=== PATIENT | female | born 1965 | race American Indian/Alaskan Native ===

== ENCOUNTER 2019-08-20 08:22 | Emergency (ER) | payer MEDICAID ==
[2019-08-20] MEDS ORDERED: Clindamycin HCl 150 MG Cap PO ONE (08:23)
[2019-08-20] MEDS ORDERED: Clindamycin HCl 150 MG Cap ONE (08:47)
--- NOTE | 2019-08-20 08:50 | EDM.PDOC ---
ED HPI GENERAL MEDICAL PROBLEM - General Chief Complaint: ENT Problem Stated Complaint: FACE SWELLING Time Seen by Provider: 08/20/19 08:35 Source of Information: Reports: Patient History Limitations: Reports: No Limitations - History of Present Illness INITIAL COMMENTS - FREE TEXT/NARRATIVE: This 53 yo female patient reports to the ED with facial swelling that has been getting worse over the past couple of days. The patient was seen in the clinic on Saturday and started on Keflex and Mupirocin ointment, but has noticed increased swelling of her upper lip and right side of her face. The patient reports she has been taking the medications as prescribed. The patient reports ibuprofen has been helping with her pain. Duration: Day(s):, Constant, Getting Worse Location: Reports: Face Quality: Reports: Other Severity: Moderate Improves with: Reports: Medication (ibuprofen) Worsens with: Reports: None Context: Reports: Other Associated Symptoms: Reports: No Other Symptoms Treatments [employer]: Reports: NSAIDS Nose Pain Score (Numeric/FACES): 4 - Related Data Allergies Allergy/AdvReac Type Severity Reaction Status Date / Time morphine Allergy Other Verified 09/05/18 06:05 Sulfa (Sulfonamide Allergy Hives Verified 09/05/18 06:05 Antibiotics) Home Meds: Home Meds Cyanocobalamin (Vitamin B-12) [Vitamin B-12] 1,000 mcg IM .MONTHLY 08/27/18 [ History] Levothyroxine [Synthroid] 50 mcg PO DAILY 08/27/18 [History] Cephalexin [Keflex] 500 mg PO BID 08/20/19 [History] Mupirocin Oint [Bactroban Oint] 1 dose TOP TID 08/20/19 [History] Past Medical History HEENT History: Reports: None Cardiovascular History: Reports: High Cholesterol Respiratory History: Reports: Sleep Apnea Gastrointestinal History: Reports: GERD Genitourinary History: Reports: None 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: Musculoskeletal History: Reports: Arthritis, RA Neurological History: Reports: None Psychiatric History: Reports: Anxiety, Depression Endocrine/Metabolic History: Reports: Hypothyroidism, Obesity/BMI 30+ Hematologic History: Reports: B12 Deficiency Immunologic History: Reports: None Oncologic (Cancer) History: Reports: None Dermatologic History: Reports: None - Infectious Disease History Infectious Disease History: Reports: None - Past Surgical History Head Surgeries/Procedures: Reports: None HEENT Surgical History: Reports: Other (See Below) Other HEENT Surgeries/Procedures: growth on voice box bx, growth removed Cardiovascular Surgical History: Reports: None GI Surgical History: Reports: Cholecystectomy Female Surgical History: Reports: Tubal Ligation Musculoskeletal Surgical History: Reports: None Social & Family History - Family History Endocrine/Metabolic: Reports: Diabetes, type II, Hypothyroidism - Tobacco Use Smoking Status *Q: Current Some Day Smoker Years of Tobacco use: 20 Packs/Tins Daily: 0.1 Second Hand Smoke Exposure: Yes - Caffeine Use Caffeine Use: Reports: Coffee, Soda, Tea Caffeine Use Comment: 2 lg bottles weekly - Recreational Drug Use Recreational Drug Use: No ED ROS ENT - Review of Systems Review Of Systems: Comprehensive ROS is negative, except as noted in HPI. ED EXAM, ENT - Physical Exam Exam: See Below Exam Limited By: No Limitations General Appearance: Alert, WD/WN, Mild Distress Eye Exam: Bilateral Eye: EOMI, Normal Inspection, PERRL Ears: Normal External Exam, Normal Canal, Hearing Grossly Normal, Normal TMs Nose: Nasal Tenderness, Other (The patient has an erythematous area in her right nare that appears to by dry at this time. ) Mouth/Throat: Dental Tenderness (upper teeth), Lip Swelling (Upper) Head: Sinus Tenderness (right maxillary) Neck: Normal Inspection, Supple, Non-Tender, Full Range of Motion Respiratory/Chest: No Respiratory Distress, Lungs Clear, Normal Breath Sounds, No Accessory Muscle Use, Chest Non-Tender Cardiovascular: Normal Peripheral Pulses, Regular Rate, Rhythm, No Edema, No Gallop, No JVD, No Murmur, No Rub GI/Abdominal: Normal Bowel Sounds, Soft, Non-Tender, No Organomegaly, No Distention, No Abnormal Bruit, No Mass (Female) Exam: Deferred Rectal (Female) Exam: Deferred Back: Normal Inspection, Full Range of Motion Extremities: Normal Inspection, Normal Range of Motion, Non-Tender, No Pedal Edema, Normal Capillary Refill Neurological: Alert, Oriented, CN II-XII Intact, Normal Cognition, Normal Gait, Normal Reflexes, No Motor/Sensory Deficits Psychiatric: Normal Affect, Normal Mood Skin: Warm, Dry, Intact, Normal Color, No Rash Lymphatic: No Adenopathy Course - Vital Signs Last Recorded V/S: Last Vital Signs Temp 36.2 C 08/20/19 08:24 Pulse 94 08/20/19 08:24 Resp 18 08/20/19 08:24 BP 134/77 08/20/19 08:24 Pulse Ox 96 08/20/19 08:24 Departure - Departure Time of Disposition: 08:47 Disposition: Home, Self-Care 01 Condition: Fair Clinical Impression: Cellulitis, face - Discharge Information *PRESCRIPTION DRUG MONITORING PROGRAM REVIEWED*: Not Applicable *COPY OF PRESCRIPTION DRUG MONITORING REPORT IN PATIENT DIOR: Not Applicable Instructions: Cellulitis, Adult, [id number] Forms: ED Department Discharge Care Plan Goals: The patient was advised of the examination results during the visit. The patient was discharged with a script for Clindamycin (300 mg) #40 to take 1 by mouth 4 times per day for 10 days. The patient was also sent home with Clindamycin (150 mg) #8 to take 2 by mouth 4 times today due to the fact that the pharmacies are closed for the holiday. If the patient has any additional symptoms or concerns, the patient should follow-up with his primary care facility or return to the emergency department.
== END 2019-08-20 08:52 | disposition home or self-care (01) ==
LOC: DL.ED 08:22
DX: L03.211 Cellulitis of face (principal); E03.9 Hypothyroidism, unspecified; E66.9 Obesity, unspecified; F17.210 Nicotine dependence, cigarettes, uncomplicated; Z88.5 Allergy status to narcotic agent; Z88.2 Allergy status to sulfonamides; Z79.899 Other long term (current) drug therapy
CPT/HCPCS: 99283; A9270

== ENCOUNTER 2020-12-30 15:50 | Emergency (ER) | payer BC, MEDICAID ==
--- NOTE | 2020-12-30 16:18 | EDM.PDOC ---
<Antolin Momin Ho - Last Filed: 12/30/20 16:47> ED HPI GENERAL MEDICAL PROBLEM - General Chief Complaint: Chest Pain Stated Complaint: AMBULANCE Time Seen by Provider: 12/30/20 16:13 Source of Information: Reports: Patient History Limitations: Reports: No Limitations - History of Present Illness INITIAL COMMENTS - FREE TEXT/NARRATIVE: 55 y/o F c/o chest pain radiating reagan the left arm and bilateral hand cramping x 45 min. Pt states she was helping a coworker move a box and afterwards the symptoms came on. Pn was 8/10 initially and sharp and now is a 1/10 at rest. States the day was very stessful with a terrible meeting with the [facility] [place] today around noon. Hx of anxiety. Brother had an CO 3 mo ago at 56 years of age. Has had a tubal ligation. Denies fever, cough, chills, jaw pain, vision prob, abd pn, pelvic pain, diff voiding, extremity pain. Onset: Today, Sudden Duration: Minutes: Location: Reports: Chest Quality: Reports: Sharp Severity: Severe Worsens with: Reports: Rest Left Chest Pain Score (Numeric/FACES): 2 - Related Data Allergies Allergy/AdvReac Type Severity Reaction Status Date / Time morphine Allergy Other Verified 12/30/20 16:02 Sulfa (Sulfonamide Allergy Hives Verified 12/30/20 16:02 Antibiotics) Home Meds: Home Meds Cyanocobalamin (Vitamin B-12) [Vitamin B-12] 1,000 mcg IM .MONTHLY 08/27/18 [History] Levothyroxine [Synthroid] 50 mcg PO DAILY 08/27/18 [History] Folic Acid 1 mg PO DAILY 12/30/20 [History] Past Medical History HEENT History: Reports: None Cardiovascular History: Reports: High Cholesterol Respiratory History: Reports: Sleep Apnea Gastrointestinal History: Reports: GERD Genitourinary History: Reports: None 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: Musculoskeletal History: Reports: Arthritis, RA Neurological History: Reports: None Psychiatric History: Reports: Anxiety, Depression Endocrine/Metabolic History: Reports: Hypothyroidism, Obesity/BMI 30+ Hematologic History: Reports: B12 Deficiency Immunologic History: Reports: None Oncologic (Cancer) History: Reports: None Dermatologic History: Reports: None - Infectious Disease History Infectious Disease History: Reports: None - Past Surgical History Head Surgeries/Procedures: Reports: None HEENT Surgical History: Reports: Other (See Below) Other HEENT Surgeries/Procedures: growth on voice box bx, growth removed Cardiovascular Surgical History: Reports: None GI Surgical History: Reports: Cholecystectomy Female Surgical History: Reports: Tubal Ligation Musculoskeletal Surgical History: Reports: None Social & Family History - Family History Endocrine/Metabolic: Reports: Diabetes, type II, Hypothyroidism - Caffeine Use Caffeine Use: Reports: Coffee, Soda, Tea Caffeine Use Comment: 2 lg bottles weekly ED ROS GENERAL - Review of Systems Review Of Systems: Comprehensive ROS is negative, except as noted in HPI. ED EXAM, GENERAL - Physical Exam Exam: See Below Exam Limited By: No Limitations General Appearance: Alert, WD/WN, No Apparent Distress Throat/Mouth: Normal Inspection, Normal Lips, Normal Teeth, Normal Gums, Normal Oropharynx, Normal Voice, No Airway Compromise Head: Atraumatic, Normocephalic Neck: Normal Inspection, Supple, Non-Tender, Full Range of Motion Respiratory/Chest: No Respiratory Distress, Lungs Clear, Normal Breath Sounds, No Accessory Muscle Use, Chest Non-Tender Cardiovascular: Normal Peripheral Pulses, Regular Rate, Rhythm, No Edema, No Gallop, No JVD, No Murmur, No Rub GI/Abdominal: Normal Bowel Sounds, Soft, Non-Tender, No Organomegaly, No Distention, No Abnormal Bruit, No Mass (Female) Exam: Deferred Rectal (Female) Exam: Deferred Back Exam: Normal Inspection, Full Range of Motion, NT Extremities: Normal Inspection, Normal Range of Motion, Non-Tender, Normal Capillary Refill, No Pedal Edema Neurological: Alert, Oriented, CN II-XII Intact, Normal Cognition, Normal Gait, Normal Reflexes, No Motor/Sensory Deficits Psychiatric: Normal Affect, Normal Mood Skin Exam: Warm, Dry, Intact, Normal Color, No Rash Lymphatic: No Adenopathy Departure - Departure Time of Disposition: 16:47 Disposition: Home, Self-Care 01 Condition: Good Clinical Impression: Acute stress reaction Instructions: Panic Attack, [id number] Forms: ED Department Discharge Additional Instructions: If any new symptoms develop contact your primary care provider or return to the ER. Sepsis Event Note (ED) - Evaluation Sepsis Screening Result: No Definite Risk <Huber Cazares - Last Filed: 12/30/20 16:54> Course - Vital Signs Last Recorded V/S: Last Vital Signs Temp 96.7 F L 12/30/20 16:03 Pulse 80 12/30/20 16:03 Resp 19 12/30/20 16:03 BP 123/75 12/30/20 16:03 Pulse Ox 100 12/30/20 16:03 - Orders/Labs/Meds Orders: Active Orders 24 hr Category Date Time Status EKG Documentation Completion [RC] STAT Care 12/30/20 15:52 Active UA RFX CLAUDIA AND CULT IF INDIC [URIN] Stat Lab 12/30/20 15:56 Ordered Labs: Laboratory Tests 12/30/20 12/30/20 12/30/20 Range/Units 15:53 15:53 15:53 WBC 6.1 (5.0-10.0) 10^3/uL RBC 4.32 (4.2-5.4) 10^6/uL Hgb 13.6 (12.0-16.0) g/dL Hct 41.1 (37.0-47.0) % MCV 95.1 (80-100) fL MCH 31.5 (27.0-34.0) pg MCHC 33.1 (33.0-35.0) g/dL Plt Count 242 (150-450) 10^3/uL Neut % (Auto) 55.1 (42.2-75.2) % Lymph % (Auto) 34.9 (20.5-50.1) % Worth % (Auto) 7.2 (2-8) % Eos % (Auto) 2.3 (1.0-3.0) % Baso % (Auto) 0.5 (0.0-1.0) % D-Dimer, Quantitative 198 (0-400) ng/mL Sodium 139 (136-145) mmol/L Potassium 3.8 (3.5-5.1) mmol/L Chloride 100 (98-107) mmol/L Carbon Dioxide 28 (21-32) mmol/L Anion Gap 14.8 H (7-13) mEq/L BUN 10 (7-18) mg/dL Creatinine 1.01 (0.55-1.02) mg/dL Est Cr Clr Drug Dosing 59.61 mL/min Estimated GFR (MDRD) 57 BUN/Creatinine Ratio 9.9 (No establ ref range) Glucose 93 (70-99) mg/dL Calcium 8.7 (8.5-10.1) mg/dL Magnesium 1.9 (1.8-2.4) mg/dL Total Bilirubin 0.4 (0.2-1.0) mg/dL AST 38 H (15-37) U/L ALT 42 (14-59) U/L Alkaline Phosphatase 81 (46-116) U/L Troponin I < 0.017 (0.000-0.056) ng/mL Total Protein 7.9 (6.4-8.2) g/dL Albumin 4.0 (3.4-5.0) g/dL Globulin 3.9 Albumin/Globulin Ratio 1.0 Amylase 45 (25-115) U/L Lipase 127 (73-393) U/L TSH, Ultra Sensitive 5.55 H (0.36-3.74) uIU/mL - Radiology Interpretation Free Text/Narrative:: [facility] Final Radiology Report Call: [phone] assistance Online chat: [email or web address] Name: TOMMY NAVARRO Age: 55Years F Date: 12/30/2020 SSN: -- : [id number] Study: CR CHEST 2V Requesting Physician: Antolin Momin Images: 2 Addl Studies: Provided Clinical History: chest pain with exertion Contrast: Contrast Medium: Contrast Amount: Contrast Method: CONFIDENTIALITY STATEMENT This report is intended only for use by the referring physician, and only in accordance with law. If you received this in error, call [phone]. Page 1 of 1 PROCEDURE INFORMATION: Exam: XR Chest Exam date and time: 12/30/2020 4:16 PM Age: 55 years old Clinical indication: Chest pain; Additional info: Chest pain with exertion TECHNIQUE: Imaging protocol: XR of the chest. Views: 2 views. COMPARISON: No relevant prior studies available. FINDINGS: Lungs: Pulmonary hyperinflation, suggestive of underlying COPD. Recommend clinical correlation. Lungs appear clear radiographically. Pleural spaces: No pneumothorax or pleural effusions. Heart/Mediastinum: No significant cardiomegaly. Bones/joints: No acute abnormality. IMPRESSION: 1. No radiographic evidence of acute disease in the chest. 2. See above for remaining findings. Thank you for allowing us to participate in the care of your patient. Dictated and Authenticated by: Lubna Hernandez MD 12/30/2020 4:44 PM Central Time ([place] & [place]) - Re-Assessments/Exams Free Text/Narrative Re-Assessment/Exam: 12/30/20 16:53 I personally performed or re-performed the physical examination and medical decision making. I have verified all student documentation or findings, including history, physical exam and/or medical decision making. Sepsis Event Note (ED) - Focused Exam Vital Signs: Vital Signs Temp Pulse Resp BP Pulse Ox 12/30/20 16:03 96.7 F L 80 19 123/75 100
[2020-12-30 16:32] LABS: ANION GAP 14.8 mEq/L (7-13); CHLORIDE,CL 100 mmol/L (98-107); SODIUM,NA 139 mmol/L (136-145)
--- NOTE | 2020-12-30 16:45 | CR ---
PROCEDURE INFORMATION: Exam: XR Chest Exam date and time: 12/30/2020 4:16 PM Age: 55 years old Clinical indication: Chest pain; Additional info: Chest pain with exertion TECHNIQUE: Imaging protocol: XR of the chest. Views: 2 views. COMPARISON: No relevant prior studies available. FINDINGS: Lungs: Pulmonary hyperinflation, suggestive of underlying COPD. Recommend clinical correlation. Lungs appear clear radiographically. Pleural spaces: No pneumothorax or pleural effusions. Heart/Mediastinum: No significant cardiomegaly. Bones/joints: No acute abnormality. IMPRESSION: 1. No radiographic evidence of acute disease in the chest. 2. See above for remaining findings.
== END 2020-12-30 17:12 | disposition home or self-care (01) ==
LOC: DL.ED 15:50
DX: F43.0 Acute stress reaction (principal); E03.9 Hypothyroidism, unspecified; E66.9 Obesity, unspecified; Z68.31 Body mass index [BMI] 31.0-31.9, adult; Z88.5 Allergy status to narcotic agent; Z88.2 Allergy status to sulfonamides
CPT/HCPCS: 36415; 71046; 80053; 82150; 83690; 83735; 84443; 84484; 85025; 85379; 93005; 99283; 99285-25